=== PATIENT | female | born 1985 | race African-American/Black ===

== ENCOUNTER 2018-03-30 23:10 | Emergency (ER) | payer OTHER ==
[~2018-03-30] VITALS: Ht 157.5 cm; Wt 171.5 kg
[2018-03-30] MEDS ORDERED: IV NORMAL SALINE 1000ML BAG 1,000 ML IV ONE (23:15)
[2018-03-30 23:26] LABS: BASO # 0.1 x10^3/uL (0.0-0.2); BASO % 1 % (0-3); EOS # 0.1 x10^3/uL (0.0-0.7); EOS % 1 % (0-3); HEMATOCRIT 40.2 % (36.0-47.0); HEMOGLOBIN 13.6 g/dL (12.0-15.5); LYMPH % 22 % (24-48); MEAN CORPUSCULAR HEMOGLOBIN 31 pg (25-35); MEAN CORPUSCULAR HGB CONC 34 g/dL (31-37); MEAN CORPUSCULAR VOLUME 92 fL (79-100); MONO # 0.8 x10^3/uL (0.0-1.1); MONO % 9 % (0-9); NEUT # 6.3 x10^3uL (1.8-7.7); NEUT % 69 % (31-73); PLATELET COUNT 195 x10^3/uL (140-400); RED BLOOD COUNT 4.39 x10^6/uL (3.50-5.40); RED CELL DISTRIBUTION WIDTH 13.9 % (11.5-14.5); WHITE BLOOD COUNT 9.2 x10^3/uL (4.0-11.0)
[2018-03-30 23:27] LABS: BILIRUBIN,URINE NEGATIVE (NEG); CLARITY,URINE CLEAR; COLOR,URINE YELLOW; NITRITE,URINE NEGATIVE (NEG); PH,URINE 5.5; PROTEIN,URINE NEGATIVE (NEG-TRACE); UROBILINOGEN,URINE 0.2 mg/dL (0.2 mg/dL)
[2018-03-30 23:33] LABS: BACTERIA,URINE 0 /HPF (0-FEW); RBC,URINE 0 /HPF (0-2); SQUAMOUS EPITHELIAL CELL,UR OCC /LPF; WBC,URINE RARE /HPF (0-4)
[2018-03-30 23:35] LABS: U PREG PATIENT NEGATIVE (NEG)
[2018-03-30 23:35] LABS: AMPHETAMINE/METHAMPHETAMINE NEG (NEG); BARBITURATES NEG (NEG); BENZODIAZEPINES NEG (NEG); CANNABINOIDS NEG (NEG); COCAINE NEG (NEG); METHADONE NEG (NEG); OPIATES NEG (NEG); PHENCYCLIDINE POS (NEG)
[2018-03-30 23:36] LABS: CALCIUM 9.7 mg/dL (8.5-10.1); GFR 63.5; POTASSIUM 3.7 mmol/L (3.5-5.1)
[2018-03-30 23:42] LABS: ACETAMIN < 2 mcg/ml (10-30); ALBUMIN 3.5 g/dL (3.4-5.0); ALBUMIN/GLOBULIN RATIO 0.8 (1.0-1.7); ETHANOL < 10 mg/dL (0-10); SALIC < 2.8 mg/dL (2.8-20.0); TOTAL BILIRUBIN 0.4 mg/dL (0.2-1.0); TOTAL PROTEIN 7.8 g/dL (6.4-8.2)
[2018-03-31 00:12] VITALS: BP 166/86
--- NOTE | 2018-03-31 00:37 | PHYS DOC ---
Past Medical History Past Medical History: No Pertinent History Additional Past Medical Histor: PSYCHIATRIC Past Surgical History: No Surgical History Alcohol Use: Heavy Drug Use: Marijuana, Phencyclidine Adult General Chief Complaint Chief Complaint: DRUG ABUSE HPI HPI 32 year old female presents via EMS with report of altered mental status. Family called EMS as patient was "not acting right." EMS reports patient was yelling and had an "outburst." Patient reports she smoked PCP on 2100. Denies other drug use. Denies fever/chills. Denies . Reports is currently on her menstrual period. Review of Systems Review of Systems Constitutional: Denies fever or chills [] Eyes: Denies change in visual acuity, redness, or eye pain [] HENT: Denies nasal congestion or sore throat [] Respiratory: Denies cough or shortness of breath [] Cardiovascular: Denies chest pain or palpitations] GI: Denies abdominal pain, nausea, vomiting, or diarrhea [] : Denies dysuria or hematuria [] Musculoskeletal: Denies back pain or joint pain [] Integument: Denies rash or skin lesions [] Neurologic: Denies headache; reports altered mental status Psychiatric: Denies suicidal or homicidal ideation Complete systems were reviewed and found to be within normal limits, except as documented in this note. Current Medications Current Medications Current Medications Medications (Trade) Dose Ordered Sig/Randi Start Time Stop Time Status Last Admin Dose Admin Magnesium Chloride (Mag Delay) 64 mg 1X ONCE 03/31/18 00:45 03/31/18 00:46 DC 03/31/18 00:41 64 MG Sodium Chloride 1,000 ml @ 1,000 mls/hr 1X ONCE 03/30/18 23:15 03/31/18 00:14 DC 03/30/18 23:32 1,000 MLS/HR Allergies Allergies Allergies Coded Allergies Type Severity Reaction Last Updated Verified No Known Drug Allergies 03/30/18 No Physical Exam Physical Exam Constitutional: Well developed, well nourished, no acute distress, non-toxic appearance. [] HENT: Normocephalic, atraumatic Eyes: PERRL, EOMI, conjunctiva normal, nystagmus noted Neck: Normal range of motion, no tenderness, supple, no meningeal signs Cardiovascular: Heart rate regular rhythm, no murmur [] Lungs & Thorax: Bilateral breath sounds clear to auscultation [] Abdomen: Soft, no tenderness Skin: Warm, dry, no erythema, no rash. [] Extremities: No tenderness, ROM intact, no edema. [] Neurologic: Alert and oriented X 3, normal motor function, normal sensory function, no focal deficits noted. [] Psychologic: Denies suicidal or homicidal ideation Current Patient Data Vital Signs Vital Signs Date Time Temp Pulse Resp B/P (MAP) Pulse Ox O2 Delivery O2 Flow Rate FiO2 03/31/18 00:12 100 20 166/86 (112) 99 Room Air 03/30/18 23:18 98.4 98.4 Lab Values Laboratory Tests Test 03/30/18 23:08 03/30/18 23:14 03/30/18 23:18 White Blood Count 9.2 x10^3/uL (4.0-11.0) Red Blood Count 4.39 x10^6/uL (3.50-5.40) Hemoglobin 13.6 g/dL (12.0-15.5) Hematocrit 40.2 % (36.0-47.0) Mean Corpuscular Volume 92 fL (79-100) Mean Corpuscular Hemoglobin 31 pg (25-35) Mean Corpuscular Hemoglobin Concent 34 g/dL (31-37) Red Cell Distribution Width 13.9 % (11.5-14.5) Platelet Count 195 x10^3/uL (140-400) Neutrophils (%) (Auto) 69 % (31-73) Lymphocytes (%) (Auto) 22 % (24-48) L Monocytes (%) (Auto) 9 % (0-9) Eosinophils (%) (Auto) 1 % (0-3) Basophils (%) (Auto) 1 % (0-3) Neutrophils # (Auto) 6.3 x10^3uL (1.8-7.7) Lymphocytes # (Auto) 2.0 x10^3/uL (1.0-4.8) Monocytes # (Auto) 0.8 x10^3/uL (0.0-1.1) Eosinophils # (Auto) 0.1 x10^3/uL (0.0-0.7) Basophils # (Auto) 0.1 x10^3/uL (0.0-0.2) Urine Collection Type U cath Urine Color Yellow Urine Clarity Clear Urine pH 5.5 Urine Specific [place] >=1.030 Urine Protein Negative mg/dL (NEG-TRACE) Urine Glucose (UA) >=1000 mg/dL (NEG) Urine Ketones (Stick) Trace mg/dL (NEG) Urine Blood Negative (NEG) Urine Nitrite Negative (NEG) Urine Bilirubin Negative (NEG) Urine Urobilinogen Dipstick 0.2 mg/dL (0.2 mg/dL) Urine Leukocyte Esterase Negative (NEG) Urine RBC 0 /HPF (0-2) Urine WBC Rare /HPF (0-4) Urine Squamous Epithelial Cells Occ /LPF Urine Bacteria 0 /HPF (0-FEW) Sodium Level 140 mmol/L (136-145) Potassium Level 3.7 mmol/L (3.5-5.1) Chloride Level 101 mmol/L (98-107) Carbon Dioxide Level 26 mmol/L (21-32) Anion Gap 13 (6-14) Blood Urea Nitrogen 10 mg/dL (7-20) Creatinine 1.0 mg/dL (0.6-1.0) Estimated GFR (Cockcroft-Gault) 63.5 BUN/Creatinine Ratio 10 (6-20) Glucose Level 425 mg/dL (70-99) H Calcium Level 9.7 mg/dL (8.5-10.1) Magnesium Level 1.5 mg/dL (1.8-2.4) L Total Bilirubin 0.4 mg/dL (0.2-1.0) Aspartate Amino Transferase (AST) 14 U/L (15-37) L Alanine Aminotransferase (ALT) 24 U/L (14-59) Alkaline Phosphatase 80 U/L (46-116) Total Protein 7.8 g/dL (6.4-8.2) Albumin 3.5 g/dL (3.4-5.0) Albumin/Globulin Ratio 0.8 (1.0-1.7) L Salicylates Level < 2.8 mg/dL (2.8-20.0) L Salicylate Last Dose Date Unk Salicylate Last Dose Time Unk Urine Opiates Screen Neg (NEG) Urine Methadone Screen Neg (NEG) Acetaminophen Level < 2 mcg/ml (10-30) L Acetaminophen Last Dose Date Unk Acetaminophen Last Dose Time Unk Urine Barbiturates Neg (NEG) Urine Phencyclidine Screen Pos (NEG) Urine Amphetamine/Methamphetamine Neg (NEG) Urine Benzodiazepines Screen Neg (NEG) Urine Cocaine Screen Neg (NEG) Urine Cannabinoids Screen Neg (NEG) Ethyl Alcohol Level < 10 mg/dL (0-10) Urine Ethyl Alcohol Neg (NEG) Glucose (Fingerstick) 386 mg/dL (70-99) H Urine Test Negative (NEG) Laboratory Tests 03/30/18 23:08 Laboratory Tests 03/30/18 23:08 EKG EKG @2340 NSR at 79bpm, occasional PVC, NO ST elevation, baseline artifact, QRS 88ms, QT/QTc 360/414ms Radiology/Procedures Radiology/Procedures [] Course & Med Decision Making Course & Med Decision Making Pertinent Labs and Imaging studies reviewed. (See chart for details) Patient presents with report of altered mental status. Patient reports she used PCP at 2100. Patient otherwise neurologically intact. Labs obtained and posted to chart. Hypomagnesemia addressed. Patient with interval improvement. Patient stable for discharge home with outpatient follow-up with PCP. Discussed findings and plan with patient, who acknowledges understanding and agreement. Dragon Disclaimer Dragon Disclaimer This electronic medical record was generated, in whole or in part, using a voice recognition dictation system. Departure Departure Impression: Primary Impression: PCP abuse Additional Impression: Hypomagnesemia Disposition: HOME, SELF-CARE Condition: STABLE Referrals: NO PCP (PCP) Patient Instructions: Drug Abuse and Addiction-[facility] Additional Instructions: Please follow up with Substance Abuse Services to help with your substance abuse. Problem Qualifiers SUSHANT JORDAN DO Mar 31, 2018 00:37
[2018-03-31] MEDS ORDERED: MAGNESIUM CHLORIDE ER 64 MG TABLET.ER PO ONE (00:45)
--- NOTE | 2018-03-31 07:38 | EKG ---
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
== END 2018-03-31 00:47 | disposition home or self-care (01) ==
LOC: ER 23:10
DX: F16.10 Hallucinogen abuse, uncomplicated (principal); E83.42 Hypomagnesemia; F10.20 Alcohol dependence, uncomplicated; Y90.0 Blood alcohol level of less than 20 mg/100 ml
CPT/HCPCS: 36415; 80053; 80307; 80329; 81001; 81025; 82962; 83735; 85025; 93005; 99285; G0480; G6039; J7030

== ENCOUNTER 2020-06-25 14:17 | Emergency (ER) | payer OTHER ==
[~2020-06-25] VITALS: Ht 157.5 cm; Wt 159.0 kg
[~2020-06-25 14:17] MED LIST: ARIP400S IM; ASCO500T4 PO; METF500T16 PO; PRED-220 PO; REPA1TAB6 PO; REPA2TAB7 PO; SITA50TA PO
[2020-06-25] MEDS ORDERED: FAMOTIDINE 20 MG/2 ML VIAL IVP ONE (14:45)
[2020-06-25] MEDS ORDERED: ONDANSETRON PF 4 MG/2 ML VIAL. IVP ONE (14:45)
[2020-06-25 14:55] LABS: BILIRUBIN,URINE NEGATIVE (NEG); CLARITY,URINE CLEAR; COLOR,URINE YELLOW; NITRITE,URINE NEGATIVE (NEG); PROTEIN,URINE NEGATIVE (NEG-TRACE)
[2020-06-25 14:59] LABS: BARBITURATES NEG (NEG); BENZODIAZEPINES NEG (NEG); CANNABINOIDS NEG (NEG); COCAINE NEG (NEG); METHADONE NEG (NEG); OPIATES NEG (NEG); PHENCYCLIDINE POS (NEG)
[2020-06-25 15:03] LABS: AMPHETAMINE/METHAMPHETAMINE NEG (NEG)
[2020-06-25 15:04] LABS: BACTERIA,URINE MANY /HPF (0-FEW)
[2020-06-25 15:05] LABS: RBC,URINE 0 /HPF (0-2); WBC,URINE OCC /HPF (0-4)
--- NOTE | 2020-06-25 15:18 | PHYS DOC ---
Past Medical History Past Medical History: Diabetes-Type II, Schizophrenia Additional Past Medical Histor: OBESITY Past Surgical History: No Surgical History Smoking Status: Never Smoker Alcohol Use: Sober Drug Use: Marijuana, Phencyclidine General Adult EDM: Chief Complaint: HYPERGLYCEMIA HPI: HPI: Patient is a 34 year old female who presents with states she woke up around noon and " just did not feel good and felt queasy". She states she then got up and made herself some oatmeal because she had been exercising and she knows that she supposed to eat more when she exercises. She states that she just kept feeling nauseous and just fatigued all over. Patient states she then called EMS to help check her out. Patient has a history of diabetes, obesity and schizophrenia. Review of Systems: Review of Systems: Constitutional: Denies fever. + chills. [] Eyes: Denies change in visual acuity. [] HENT: Denies nasal congestion or sore throat. [] Respiratory: Denies cough or shortness of breath. [] Cardiovascular: Denies chest pain or edema. [] GI: Denies abdominal pain. + nausea, denies vomiting, bloody stools or diarrhea. [] : Denies dysuria. [] Musculoskeletal: Denies back pain or joint pain. + Generalized weakness [] Integument: Denies rash. [] Neurologic: Denies headache, focal weakness or sensory changes. [] Endocrine: Denies polyuria or polydipsia. [] Lymphatic: Denies swollen glands. [] Psychiatric: Denies depression or anxiety. [] Heart Score: Risk Factors: Risk Factors: DM, Current or recent (<one month) smoker, HTN, HLP, family history of CAD, obesity. Risk Scores: Score 0 - 3: 2.5% MACE over next 6 weeks - Discharge Home Score 4 - 6: 20.3% MACE over next 6 weeks - Admit for Clinical Observation Score 7 - 10: 72.7% MACE over next 6 weeks - Early Invasive Strategies Current Medications: Current Medications Medications (Trade) Dose Ordered Sig/Randi Start Time Stop Time Status Last Admin Dose Admin Famotidine (Pepcid Vial) 20 mg 1X ONCE 06/25/20 14:45 06/25/20 14:47 DC Ondansetron HCl (Zofran) 4 mg 1X ONCE 06/25/20 14:45 06/25/20 14:47 DC Allergies: Allergies: Allergies Coded Allergies Type Severity Reaction Last Updated Verified No Known Drug Allergies 03/30/18 No Physical Exam: PE: Constitutional: Well developed, well nourished, no acute distress, non-toxic appearance. [] HENT: Normocephalic, atraumatic, bilateral external ears normal, oropharynx moist, no oral exudates, nose normal. [] Eyes: PERRLA, EOMI, conjunctiva normal, no discharge. [] Neck: Normal range of motion, no tenderness, supple, no stridor. [] Cardiovascular:Heart rate regular rhythm, no murmur [] Lungs & Thorax: Bilateral breath sounds clear to auscultation [] Abdomen: Bowel sounds normal, soft, no tenderness, no masses, no pulsatile masses. [] Skin: Warm, dry, no erythema, no rash. [] Back: No tenderness, no CVA tenderness. [] Extremities: No tenderness, no cyanosis, no clubbing, ROM intact, no edema. [] Neurologic: Alert and oriented X 3, normal motor function, normal sensory function, no focal deficits noted. [] Psychologic: Affect normal, judgement normal, mood normal. ++ Normal physical exam [] Current Patient Data: Labs: Laboratory Tests Test 06/25/20 14:29 Urine Collection Type Void Urine Color Yellow Urine Clarity Clear Urine pH 6.0 (<5.0-8.0) Urine Specific [place] >=1.030 (1.000-1.030) Urine Protein Negative mg/dL (NEG-TRACE) Urine Glucose (UA) >=1000 mg/dL (NEG) Urine Ketones (Stick) Trace mg/dL (NEG) Urine Blood Negative (NEG) Urine Nitrite Negative (NEG) Urine Bilirubin Negative (NEG) Urine Urobilinogen Dipstick 1.0 mg/dL (0.2 mg/dL) Urine Leukocyte Esterase Negative (NEG) Urine RBC 0 /HPF (0-2) Urine WBC Occ /HPF (0-4) Urine Squamous Epithelial Cells Many /LPF Urine Bacteria Many /HPF (0-FEW) Urine Mucus Mod /LPF Urine Opiates Screen Neg (NEG) Urine Methadone Screen Neg (NEG) Urine Barbiturates Neg (NEG) Urine Phencyclidine Screen Pos (NEG) Urine Amphetamine/Methamphetamine Neg (NEG) Urine Benzodiazepines Screen Neg (NEG) Urine Cocaine Screen Neg (NEG) Urine Cannabinoids Screen Neg (NEG) Urine Ethyl Alcohol Neg (NEG) Vital Signs: Vital Signs Date Time Temp Pulse Resp B/P (MAP) Pulse Ox O2 Delivery O2 Flow Rate FiO2 06/25/20 14:59 98.7 87 18 133/73 (93) 97 Room Air 98.7 EKG: EK and read by Dr Greco as sinus rhythm and no STEMI Radiology/Procedures: Radiology/Procedures: [] Impression: [facility] [address] [place] [address] IMAGING REPORT Signed PATIENT: KAITLIN ARNOLD CACCOUNT: [id number] : 1985 LOCATION: ER AGE: 34 SEX: F EXAM STATUS: REG ER ORD. PHYSICIAN: JOSEPH BARAHONA APRN REASON: epigastric discomfort PROCEDURE: PORTABLE CHEST 1V Chest AP portable at 1526: Reason for examination: Epigastric discomfort. Comparison is made to previous study dated 02/28/2020. The heart size continues to be mildly enlarged. Mediastinum is unremarkable. Lung lewis are clear. No acute bony abnormalities are seen. Impression: Stable mild cardiomegaly. No acute cardiopulmonary disease. Electronically signed by: Yanira Mitchell MD (06/25/2020 4:31 PM) [facility] DICTATED and SIGNED BY: YANIRA MITCHELL MD DATE: 06/25/20 [id number] 0 Course & Med Decision Making: Course & Med Decision Making Pertinent Labs and Imaging studies reviewed. (See chart for details) COVID-19 CRITERIA: The patient was evaluated during the global COVID-19 pandemic, and that diagnosis was suspected/considered upon their initial presentation. Their evaluation, treatment and testing was consistent with current guidelines for patients who present with complaints or symptoms that may be related to COVID-19. See HPI. Alert and oriented x4. Speaks in full clear sentences. Morbidly obese. Skin pink warm and dry. Afebrile. Abdomen is soft and nontender. Lungs are clear to auscultation all lobes. Blood work unremarkable. Urinalysis shows some dehydration. She is positive for PCP. She will be tested for Covid due to her symptoms. [] Tammy Disclaimer: Tammy Disclaimer: This electronic medical record was generated, in whole or in part, using a voice recognition dictation system. Departure Departure Impression: Primary Impression: Nausea Disposition: 01 DC HOME SELF CARE/HOMELESS Condition: STABLE Referrals: NO PCP (PCP) Patient Instructions: Nausea, Adult Additional Instructions: Follow-up with your primary care provider. Drink plenty of fluids. Take all your medications as you are supposed to. Stop doing drugs. If you begin having severe chest pain or shortness of breath or a high fever return emergency room. Quarantine until you get your Covid test back which will be in 48 hours. You have been tested for or diagnosed with COVID-19. It is an infection caused by a new type of coronavirus. COVID-19 will cause cold-like or mild flu symptoms in most. It can cause more severe symptoms like problems breathing in some. There is no treatment for COVID-19. The body will clear the infection over time. Self-care will help to ease discomfort. Steps to Take: Self-Care Rest as needed. Healthy habits may help you feel better. Steps include: Choose healthy foods including fruits and vegetables. Drink water throughout the day. Get plenty of sleep each night. If you smoke, try to quit. It may ease breathing. Avoid alcohol. Keep Others Healthy The virus can spread to others. Droplets are released every time you sneeze or cough. The droplets can get into the mouth, nose, or eyes of people near you and lead to infection. To lower the chances of spreading COVID-19 to others: Stay at home until your doctor has said it is safe to leave. If you tested positive this will mean staying isolated until both of the following are true: At least 7 days have passed since the start of illness. You are free of fever for at least 72 hours without the use of medicine. During this time: - Avoid public areas, events, or transportation. Do not return to work or school until your doctor has said it is safe to do so. - Call ahead if you need to go to a medical center. Let them know you may have COVID-19. It will help them guide you where to go. They may also ask you to wear a facemask when you come to the office. - If you call for emergency medical services, let them know you may have COVID- 19. While at home: - Try to avoid close contact with others. Stay about 6 feet away. - If possible, spend most of your time in a separate room from others. - Use a face mask if you will be in close contact with others such as sharing a room or vehicle. - Have someone wipe down common surfaces in the home. Use household fixture repairer fabricator every day on areas like doorknobs, counters, or sinks. - Cough or sneeze into a tissue. Throw the tissue away right after use. If a tissue is not available, cough or sneeze into your elbow. - Wash your hands often. Wash them after sneezing or coughing. Use soap and water and wash for at least 20 seconds. Alcohol based hand hand dry cleaner can be used if soap and water is not available. - Do not prepare food for others. Avoid sharing personal items like forks, spoons, or toothbrushes. - Avoid close contact with pets while you are sick. There is no evidence of the virus passing to pets. This is a safety step until more is known about this virus. Isolation can be frustrating. Social interaction can help. Keep in touch with friends and family through phone and tech options. You can still interact with others in you r home, just keep a safe distance of about 6 feet. Follow-up: Your doctors office will check in with you to see if there are any changes in your health. You may be asked to keep track of symptoms to share with them. They will also let you know when you are clear to be in public again. Problems to Look Out For: Contact your doctor if your recovery is not going as you expect. Get emergency care if you have problems such as: - Trouble breathing - Nonstop chest pain or pressure - Changes in awareness, confusion, or problems waking - Lips or face have bluish color - Worsening of symptoms If you think you have an emergency, call for emergency medical services right away. As taken from [facility] Ondansetron (ONDANSETRON ODT) 4 Mg Tab.rapdis 1 TAB PO PRN Q6-8HRS, #16 TAB Prov: JOSEPH BARAHONA APRN 06/25/20 JOESPH BARAHONA APRN Jun 25, 2020 15:18
[2020-06-25] MEDS ORDERED: IV NORMAL SALINE 1000ML BAG 1,000 ML IV ONE (15:30)
[2020-06-25 15:44] LABS: BASO # 0.1 x10^3/uL (0.0-0.2); BASO % 1 % (0-3); EOS # 0.1 x10^3/uL (0.0-0.7); EOS % 2 % (0-3); HEMATOCRIT 37.3 % (36.0-47.0); HEMOGLOBIN 12.3 g/dL (12.0-15.5); LYMPH # 2.2 x10^3/uL (1.0-4.8); LYMPH % 27 % (24-48); MEAN CORPUSCULAR HEMOGLOBIN 30 pg (25-35); MEAN CORPUSCULAR HGB CONC 33 g/dL (31-37); MEAN CORPUSCULAR VOLUME 92 fL (79-100); MONO # 0.7 x10^3/uL (0.0-1.1); MONO % 8 % (0-9); NEUT # 5.1 x10^3/uL (1.8-7.7); NEUT % 62 % (31-73); PLATELET COUNT 181 x10^3/uL (140-400); RED BLOOD COUNT 4.07 x10^6/uL (3.50-5.40); RED CELL DISTRIBUTION WIDTH 13.5 % (11.5-14.5); WHITE BLOOD COUNT 8.2 x10^3/uL (4.0-11.0)
[2020-06-25 16:07] LABS: CREATININE 0.8 mg/dL (0.6-1.0); GFR 98.2; POTASSIUM 3.8 mmol/L (3.5-5.1)
[2020-06-25 16:10] LABS: ALBUMIN 3.1 g/dL (3.4-5.0); ALBUMIN/GLOBULIN RATIO 0.9 (1.0-1.7); TOTAL BILIRUBIN 0.5 mg/dL (0.2-1.0); TOTAL PROTEIN 6.6 g/dL (6.4-8.2)
--- NOTE | 2020-06-25 16:33 | RAD ---
Chest AP portable at 1526: Reason for examination: Epigastric discomfort. Comparison is made to previous study dated 02/28/2020. The heart size continues to be mildly enlarged. Mediastinum is unremarkable. Lung lewis are clear. N o acute bony abnormalities are seen. Impression: Stable mild cardiomegaly. No acute cardiopulmonary disease. Electronically signed by: Celina Trujillo MD (06/25/2020 4:31 PM) [facility]
[2020-06-25] MEDS ORDERED: ONDA4TAB12 PO (16:36)
[2020-06-25 17:00] VITALS: BP 127/65
--- NOTE | 2020-06-28 09:38 | EKG ---
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
--- NOTE | 2020-06-28 13:07 | NUR ---
IP: Informed pt of negative COVID test. Pt verbalized understanding.
== END 2020-06-25 17:30 | disposition home or self-care (01) ==
LOC: ER 14:17
DX: R11.0 Nausea (principal); R53.1 Weakness; F20.9 Schizophrenia, unspecified; E11.65 Type 2 diabetes mellitus with hyperglycemia; E66.9 Obesity, unspecified; Z68.44 Body mass index [BMI] 60.0-69.9, adult
CPT/HCPCS: 36415; 71045; 80053; 80307; 81001; 82010; 83690; 84484; 85025; 87086; 93005; 96361; 96374; 96375; 99285; C9803; J2405; J3490; J7030; U0003

== ENCOUNTER 2020-10-28 16:39 | Emergency (ER) | payer OTHER ==
[~2020-10-28] VITALS: Ht 157.5 cm; Wt 136.0 kg
[~2020-10-28 16:39] MED LIST changes: +ONDA4TAB12 PO
--- NOTE | 2020-10-28 17:02 | PHYS DOC ---
Past Medical History Past Medical History: Diabetes-Type II, Hypertension, Schizophrenia Additional Past Medical Histor: OBESITY Past Surgical History: No Surgical History Smoking Status: Never Smoker Alcohol Use: Sober Drug Use: Marijuana, Phencyclidine General Adult EDM: Chief Complaint: KNEE INJURY HPI: HPI: Patient is a 35 year old female with history of diabetes type 2, hypertension, schizophrenia, arthritis, who presents to the ED today complaining of mild pain to bilateral knees, this is chronic, denies any injuries. Pain got worse today. Review of Systems: Review of Systems: Constitutional: Denies fever or chills. [] Musculoskeletal: Reports bilateral knee pain Integument: Denies rash. [] Neurologic: Denies headache, focal weakness or sensory changes. [] Psychiatric: Denies depression or anxiety. [] Heart Score: C/O Chest Pain: N/A Risk Factors: Risk Factors: DM, Current or recent (<one month) smoker, HTN, HLP, family history of CAD, obesity. Risk Scores: Score 0 - 3: 2.5% MACE over next 6 weeks - Discharge Home Score 4 - 6: 20.3% MACE over next 6 weeks - Admit for Clinical Observation Score 7 - 10: 72.7% MACE over next 6 weeks - Early Invasive Strategies Allergies: Allergies: Allergies Coded Allergies Type Severity Reaction Last Updated Verified No Known Drug Allergies 03/30/18 No Physical Exam: PE: Skin: Warm, dry, no erythema, no rash. [] Back: No tenderness, no CVA tenderness. [] Extremities: Bilateral lower extremities with no obvious deformity. Overweight patient. Range of motion intact. +2 bilateral pedal pulses. Neurologic: Alert and oriented X 3, normal motor function, normal sensory function, no focal deficits noted. [] Psychologic: Affect normal, judgement normal, mood normal. [] EKG: EKG: [] Radiology/Procedures: Radiology/Procedures: []PROCEDURE: KNEE BILAT 3V 3 view study of both knees Clinical indications: Chronic knee pain. Right knee: No acute fracture or dislocation or lytic process is seen. There is moderate degenerative spurring and mild joint space narrowing of the medial compartment. There is mild spurring without joint space narrowing of the lateral compartment. There is mild degenerative spurring of the patellofemoral joint compartment. Left knee: No acute fracture or dislocation or lytic process is seen. There is moderate degenerative spurring and mild joint space narrowing of the medial compartment. Mild degenerative spurring without joint space narrowing of the lateral compartment. There is mild degenerative spurring of the patellofemoral joint compartment. IMPRESSION: Tricompartmental primary degenerative osteoarthritis of both knees more prominently involving the medial tibiofemoral joint compartment on both sides. No acute fracture. Electronically signed by: Ruddy Grimaldo MD (10/28/2020 5:50 PM) [id number] DICTATED and SIGNED BY: RUDDY GRIMALDO MD DATE: 10/28/20 [id number] Course & Med Decision Making: Course & Med Decision Making Pertinent Labs and Imaging studies reviewed. (See chart for details) This is a 35-year-old female patient presenting to the ED today with chronic bilateral knee pain. Requesting x-rays. Bilateral knee x-rays were noted for arthritis. Discharge to home. Follow-up with Ortho. Munoz Disclaimer: Tammy Disclaimer: This electronic medical record was generated, in whole or in part, using a voice recognition dictation system. Departure Departure Impression: Primary Impression: Arthritis of knee, degenerative Qualified Codes: M17.0 - Bilateral primary osteoarthritis of knee Disposition: HOME / SELF CARE / HOMELESS Condition: STABLE Referrals: NO PCP (PCP) WILL NARANJO MD followup in 1-2 weeks Patient Instructions: Arthritis, Degenerative-Brief Additional Instructions: You have arthritis in your knees. Please follow-up with the provided orthopedic doctor in the next 1 to 2 weeks. You have to call his office tomorrow and set up a follow-up appointment. Also follow-up with your own primary care doctor. Scripts Diclofenac Potassium (DICLOFENAC POTASSIUM) 50 Mg Tablet 1 TAB PO BID, #20 TAB 0 Refills Prov: TEN MENDEZ OWNER SPA DIRECTOR 10/28/20 Diclofenac Potassium (DICLOFENAC POTASSIUM) 50 Mg Tablet 1 TAB PO BID, #20 TAB 0 Refills Prov: TEN MENDEZ OWNER SPA DIRECTOR 10/28/20 TEN MENDEZ APRN Oct 28, 2020 17:02
[2020-10-28 17:10] VITALS: BP 144/89
--- NOTE | 2020-10-28 17:52 | RAD ---
3 view study of both knees Clinical indications: Chronic knee pain. Right knee: No acute fracture or dislocation or lytic process is seen. There is moderate degenerative spurring and mild joint space narrowing of the medial compartment. There is mild spurring without marycruz int space narrowing of the lateral compartment. There is mild degenerative spurring of the patellofem oral joint compartment. Left knee: No acute fracture or dislocation or lytic process is seen. There is moderate degenerative spurring and mild joint space narrowing of the medial compartment. Mild degenerative spurring without joint space narrowing of the lateral compartment. There is mild degenerative spurring of the patello femoral joint compartment. IMPRESSION: Tricompartmental primary degenerative osteoarthritis of both knees more prominently invol ving the medial tibiofemoral joint compartment on both sides. No acute fracture. Electronically signed by: Андрей Grimaldo MD (10/28/2020 5:50 PM) [id number]
[2020-10-28] MEDS ORDERED: NAPROXEN 500 MG TABLET PO STA (18:10)
[2020-10-28] MEDS ORDERED: DICL50TA2 PO ×2 (18:16→20:55)
[2020-10-29] MEDS ORDERED: NAPR-683 PO (00:54)
== END 2020-10-28 18:36 | disposition home or self-care (01) ==
LOC: ER 16:39
DX: M17.0 Bilateral primary osteoarthritis of knee (principal); E11.9 Type 2 diabetes mellitus without complications; I10 Essential (primary) hypertension; F20.9 Schizophrenia, unspecified; E66.9 Obesity, unspecified; Z68.43 Body mass index [BMI] 50.0-59.9, adult
CPT/HCPCS: 81025; 99283; 73562-50

== ENCOUNTER 2020-10-28 23:35 | Emergency (ER) | payer OTHER ==
[~2020-10-28] VITALS: Ht 167.6 cm; Wt 172.7 kg
[~2020-10-28 23:35] MED LIST changes: +DICL50TA2 PO
[2020-10-29] MEDS ORDERED: NAPR-683 PO (00:54)
--- NOTE | 2020-10-29 00:54 | PHYS DOC ---
Past Medical History Past Medical History: Arthritis, Diabetes-Type II, Hypertension, Schizophrenia Additional Past Medical Histor: OBESITY Past Surgical History: No Surgical History Smoking Status: Current Every Day Smoker Alcohol Use: Sober Drug Use: Marijuana, Phencyclidine General Adult EDM: Chief Complaint: PAIN CONTROL HPI: HPI: Patient is a 35 year old female presents with a chief complaint of bilateral k nee pain. Patient states she was diagnosed with osteoarthritis. Patient was seen several hours prior and prescribed diclofenac 50 mg tablets. While at [facility] patient called 911 had EMS transport her to the emergency department. When I examined the patient she states she does not want diclofenac and would prefer to have naproxen instead. Review of Systems: Review of Systems: Review of systems: Constitutional symptoms- No fever, no chills. Eyes- No Discharge, No Visual Loss Respiratory symptoms- No shortness of breath, No wheezing, No Dyspnea on Exertion Cardiovascular Systems; No chest pain, No Palpitations, No syncope Gastrointestinal symptoms: NO abdominal pain, no nausea, no vomiting or diarrhea. Genitourinary symptoms: No dysuria. Musculoskeletal symptoms: No back pain Positive extremity pain. NEUROLOGICAL Symptoms: No headache, no generalized weakness; No focal Weakness Heart Score: C/O Chest Pain: N/A Risk Factors: Risk Factors: DM, Current or recent (<one month) smoker, HTN, HLP, family history of CAD, obesity. Risk Scores: Score 0 - 3: 2.5% MACE over next 6 weeks - Discharge Home Score 4 - 6: 20.3% MACE over next 6 weeks - Admit for Clinical Observation Score 7 - 10: 72.7% MACE over next 6 weeks - Early Invasive Strategies Allergies: Allergies: Allergies Coded Allergies Type Severity Reaction Last Updated Verified No Known Drug Allergies 03/30/18 No Physical Exam: PE: General: alert, no acute distress. Skin: warm, dry and intact. Head:: Normocephalic, atraumatic. Neck: Trachea midline. Eyes: EOMI, Normal conjunctiva, No drainage CARDIOVASCULAR: Regular rate and rhythm RESPIRATORY: No respiratory distress Back: Full range of motion. MUSCULOSKELETAL: Full range of motion of bilateral upper and lower extremities. GASTROINTESTINAL: Abdomen soft without rebound or guarding. NEUROLOGICAL: Alert and noted to person, place and time. No neurological deficits observed Psychiatric: Cooperative. Normal judgment Current Patient Data: Vital Signs: Vital Signs Date Time Temp Pulse Resp B/P (MAP) Pulse Ox O2 Delivery O2 Flow Rate FiO2 10/28/20 23:41 97.6 75 16 125/63 (83) 96 Room Air 97.6 EKG: EKG: [] Radiology/Procedures: Radiology/Procedures: [] Course & Med Decision Making: Course & Med Decision Making Pertinent Labs and Imaging studies reviewed. (See chart for details) [] Dragon Disclaimer: Dragon Disclaimer: This electronic medical record was generated, in whole or in part, using a voice recognition dictation system. Departure Departure Impression: Primary Impression: Arthritis of knee, degenerative Disposition: HOME / SELF CARE / HOMELESS Condition: STABLE Referrals: UNKNOWN PCP NAME (PCP) Patient Instructions: Knee Pain Scripts Naproxen (NAPROSYN) 500 Mg Tablet 1 TAB PO BID for pain for 30 Days, #60 TAB 0 Refills Prov: REAL GAVIRIA DO 10/29/20 REAL GAVIRIA DO Oct 29, 2020 00:54
[2020-10-29 01:12] VITALS: BP 125/63
== END 2020-10-29 01:12 | disposition home or self-care (01) ==
LOC: ER 23:35
DX: M17.0 Bilateral primary osteoarthritis of knee (principal); E11.9 Type 2 diabetes mellitus without complications; I10 Essential (primary) hypertension; F20.9 Schizophrenia, unspecified; E66.9 Obesity, unspecified; F17.200 Nicotine dependence, unspecified, uncomplicated; Z68.44 Body mass index [BMI] 60.0-69.9, adult
CPT/HCPCS: 99283